=== PATIENT | female | born 1965 | race African-American/Black ===

== ENCOUNTER 2021-12-09 14:33 | Outpatient (RCR) | payer OTHER ==
[~2021-12-09 14:33] MED LIST: LIDOCAINE VISC 2% SOLN 15 ML UDC ONE; SILVER SULFADIAZINE 50GM CREAM ONE
== END 2021-12-16 ==
LOC: WCC 14:33
PROVIDERS: ATTEND Internal Medicine Infectious Disease
DX: E11.65 Type 2 diabetes mellitus with hyperglycemia (principal); S31.819A Unspecified open wound of right buttock, initial encounter; S91.002A Unspecified open wound, left ankle, initial encounter; T21.25XA Burn of second degree of buttock, initial encounter; T24.222A Burn of second degree of left knee, initial encounter; I10 Essential (primary) hypertension; E78.5 Hyperlipidemia, unspecified
CPT/HCPCS: 36415; 82948

== ENCOUNTER 2021-12-23 14:38 | Outpatient (RCR) | payer OTHER | END 2022-01-16 | LOC: WCC 14:38 | PROVIDERS: ATTEND Internal Medicine Infectious Disease | DX: E11.65 Type 2 diabetes mellitus with hyperglycemia (principal); S31.819A Unspecified open wound of right buttock, initial encounter; T21.25XA Burn of second degree of buttock, initial encounter; T24.222A Burn of second degree of left knee, initial encounter; I10 Essential (primary) hypertension; E78.5 Hyperlipidemia, unspecified ==